=== PATIENT | male | born 1975 | race Caucasian/White ===

== ENCOUNTER → 2018-12-16 | Outpatient (CLI) | payer BC | LOC: FIMAGING 16:39 | PROVIDERS: ATTEND Internal Medicine Pulmonary Disease | DX: R06.09 Other forms of dyspnea (principal); R05 Cough ==

== ENCOUNTER 2018-12-21 07:38 | Day surgery (SDC) | payer BC ==
[2018-12-21] MEDS ORDERED: OXYMETAZOLINE 30 ML NASAL SPRAY ONE (08:12)
[2018-12-21] MEDS ORDERED: LIDOCAINE 1% 300 MG/30 ML SDV ONE (08:16)
[2018-12-21] MEDS ORDERED: EPINEPHrine 1 MG/ML INJ ONE (08:18)
[2018-12-21] MEDS ORDERED: ALBUTEROL 3 ML DEYVIAL ONE (08:18)
[2018-12-21] MEDS ORDERED: LIDOCAINE 2% JELLY 6 ML TOPICAL SYR ONE (08:19)
[2018-12-21] MEDS ORDERED: LIDOCAINE HCL 4% TOPICAL SOLN 50ML ONE (08:20)
[2018-12-21] MEDS ORDERED: NS 500 ML IV ONE (08:23)
[2018-12-21] MEDS ORDERED: MIDAZOLAM 2 MG/2 ML VIAL ONE (08:52)
[2018-12-21] MEDS ORDERED: fentaNYL 100 MCG/2 ML INJ ONE (08:53)
--- NOTE | 2018-12-21 09:12 | PDPROPOC ---
Sedation Plan of Care Sedation Plan of Care: vital signs stable, mental status noted, patient educated of risks, benefits, alternatives, patient can tolerate sedation ASA Classification: ASA 2 Mallampati Score: Class 1 Mallampati Reference Image: Patient passed 3-3-2 rule?: Yes
--- NOTE | 2018-12-21 09:13 | PDHPUP ---
History & Physical Update H&P update statement: This history and physical update is based on an assessment of the patient which was completed after admission or registration (within 24 hours), but prior to the surgery/procedure. H&P update: H&P reviewed & patient examined, no change in patient's condition since H&P completed
[2018-12-21] MEDS ORDERED: DEXAMETHASONE 10 MG/ML VIAL IVP ONE (09:26)
[2018-12-21] MEDS ORDERED: MIDAZOLAM 2 MG/2 ML VIAL IVP ONE (09:36)
[2018-12-21] MEDS ORDERED: fentaNYL 100 MCG/2 ML INJ IVP ONE (09:36)
--- NOTE | 2018-12-21 09:56 | SUROPNOTE ---
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 Anesthesiologist NA Sedation Type: moderate/conscious sedation Sedation Medications: fentanyl, versed Medications: Topical 1% lidocaine: 3 cc via nebulizer, 10 cc via bronchoscope: 6 cc vocal cords, 4 cc right mainstem bronchus, 4 cc left mainstem bronchus Procedure Summary: Time out was performed. The bronchoscope was then introduced via the nasopharynx, into the trachea. Entire tracheobronchial tree was examined. The main margarita appeared sharp. The right-sided airways were inspected first and were widely patent to the subsegmental level. The left- sided airways were then inspected and also appeared widely patent to the subsegmental level. All secretions were therapeutically aspirated. Airway mucosa appeared red, erythematous and friable throughout. Bronchoalveolar lavage was then performed in the RML with instillation of 100 mL of NS with return of 33 mL of cloudy-appearing fluid with what appeared to be small bronchial casts. Total moderate sedation time was 25 minutes. All vitals and cardiopulmonary status were continuously monitored by a dedicated RN. EBL none Complications: None Impression: red erythematous friable airway mucosa Items to Follow-up: BAL fluid sent cell count, diff, Gram stain and culture, aspergillus galactomannan S Lawrence Hathaway MD Pulmonary [facility] Medicine [phone]
[2018-12-21 10:50] VITALS: BP 138/78
== END 2018-12-21 11:20 | disposition home or self-care (01) ==
LOC: FSGY 07:38 → MERGE 07:38 → FSGY 11:20
PROVIDERS: ATTEND Internal Medicine Pulmonary Disease
PROC: 0B958ZX Drainage of Right Middle Lobe Bronchus, Via Natural or Artificial Opening Endoscopic, Diagnostic (ICD-10-PCS; principal; 2018-12-21 09:00)
DX: J82 Pulmonary eosinophilia, not elsewhere classified (principal); J96.90 Respiratory failure, unspecified, unspecified whether with hypoxia or hypercapnia; Z87.891 Personal history of nicotine dependence
CPT/HCPCS: J0171; J1100; J2250; J3010; J7613